=== PATIENT | female | born 1935 | race Caucasian/White ===

== ENCOUNTER 2017-04-16 14:29 | Inpatient (IN) | payer OTHER ==
[~2017-04-16] VITALS: Ht 160 cm; Wt 76.0 kg
[2017-04-16] MEDS ORDERED: HYDRALAZINE HCL50 MG PO (14:50)
[2017-04-16] MEDS ORDERED: CHILD ASPIRIN81 M1 PO (14:51)
[2017-04-16] MEDS ORDERED: NEURONTIN300 MG PO (14:52)
[2017-04-16] MEDS ORDERED: ULORIC40 MG PO (14:52)
[2017-04-16] MEDS ORDERED: TOPROL XL100 MG PO (14:53)
[2017-04-16] MEDS ORDERED: TOPROL XL50 MG PO (14:53)
[2017-04-16] MEDS ORDERED: NYSTATIN100000 UN1 PO (14:54)
[2017-04-16] MEDS ORDERED: LIPITOR40 MG PO (14:56)
[2017-04-16] MEDS ORDERED: ACIDOPHILUS1 EAC4 PO (14:56)
[2017-04-16] MEDS ORDERED: ARICEPT5 MG PO (14:58)
[2017-04-16] MEDS ORDERED: SYNTHROID75 MCG PO (15:01)
[2017-04-16] MEDS ORDERED: PROTONIX40 MG PO (15:02)
[2017-04-16] MEDS ORDERED: MILK OF MAGN PO (15:02)
[2017-04-16] MEDS ORDERED: BISAC-EVAC10 MG PR (15:03)
[2017-04-16] MEDS ORDERED: FLEET ENEMA-AD118 ML PR (15:03)
[2017-04-16] MEDS ORDERED: PROMETHAZINE HC25 M1 PO (15:04)
[2017-04-16 15:47] LABS: HEMATOCRIT 33.6 % (36.0-46.0); MCH 23.4 PG (29.0-34.0); MCHC 30.4 G/DL (30.0-36.0); MCV 77.1 FL (83-99); MEAN PLAT.VOLUME 10.1 uM^3 (9.5-12.4); PLATELET COUNT 307 K/uL (156-360); RBC DIS.WIDTH-CV 17.3 % (11.8-14.6); RBC DIS.WIDTH-SD 48.3 % (39-53); RED BLOOD COUNT 4.36 M/uL (3.80-5.20); WHITE BLOOD COUNT 8.5 K/uL (4.1-10.2)
[2017-04-16 15:57] LABS: CHLORIDE 115 mEq/L (99-109); INTER. NORMALIZED RATIO 1.1; PROTHROMBIN TIME 11.9 SEC (10.2-12.9); SODIUM 141 mEq/L (136-147)
[2017-04-16 15:59] LABS: GLUCOSE 170 mg/dL (70-99)
[2017-04-16 16:00] LABS: ANION GAP 11 MEQ/L (2-14)
[2017-04-16 16:02] LABS: GFR ESTIMATE (CALCULATED) 18 mL/min/
[2017-04-16 16:10] LABS: PTT 20.5 SEC (25-37)
[2017-04-16 16:11] LABS: TROP-I INTERPRETATION NEGATIVE; TROPONIN-I 0.01 ng/mL (0.0-0.30)
[2017-04-16 16:18] LABS: UREA NITROGEN (BUN) 44 mg/dL (9-23)
[2017-04-16 16:23] LABS: POTASSIUM 6.4 mEq/L (3.7-5.4)
[2017-04-16] MEDS ORDERED: TYLENOL REGULA325 MG PO (19:10)
[2017-04-16 19:11] LABS: CREATININE 2.5 mg/dL (0.6-1.3); POTASSIUM 5.7 mEq/L (3.7-5.4)
[2017-04-16 23:02] LABS: TROP-I INTERPRETATION NEGATIVE; TROPONIN-I < 0.01 ng/mL (0.0-0.30)
[2017-04-17] VITALS (7 sets, daily range): BP systolic 143–177; BP diastolic 63–73
[2017-04-17 03:09] LABS: POINT-OF-CARE METER ID UU14174225
[2017-04-17 08:28] LABS: POINT-OF-CARE METER ID UU14174225
[2017-04-17 08:42] LABS: HEMATOCRIT 30.4 % (36.0-46.0); MCH 22.9 PG (29.0-34.0); MCHC 29.9 G/DL (30.0-36.0); MCV 76.6 FL (83-99); MEAN PLAT.VOLUME 9.8 uM^3 (9.5-12.4); PLATELET COUNT 268 K/uL (156-360); RBC DIS.WIDTH-CV 17.3 % (11.8-14.6); RBC DIS.WIDTH-SD 48.2 % (39-53); RED BLOOD COUNT 3.97 M/uL (3.80-5.20)
[2017-04-17 09:09] LABS: TROP-I INTERPRETATION NEGATIVE; TROPONIN-I < 0.01 ng/mL (0.0-0.30)
[2017-04-17 09:30] LABS: ANION GAP 7 MEQ/L (2-14); CHLORIDE 114 MEQ/L (99-109); GFR ESTIMATE (CALCULATED) 18 mL/min/; IRON 35 MCG/DL (35-150); POTASSIUM 5.7 MEQ/L (3.7-5.4); SAMPLE HEMOLYSIS CHECK 0; SAMPLE ICTERIC CHECK 0; SAMPLE LIPEMIA CHECK 0; SODIUM 141 MEQ/L (136-147); UREA NITROGEN (BUN) 46 mg/dL (9-23)
[2017-04-17 09:31] LABS: GLUCOSE 105 mg/dL (70-99)
[2017-04-17 10:04] LABS: FERRITIN 29 NG/ML (10-291)
[2017-04-17 11:52] LABS: POINT-OF-CARE METER ID UU14174225
[2017-04-17 12:13] LABS: POINT-OF-CARE METER ID UU14174225
[2017-04-17 12:56] LABS: UR CREATININE CONCENTRATION 50.2 MG/DL
[2017-04-17 15:20] LABS: ANION GAP 7 MEQ/L (2-14); CHLORIDE 115 MEQ/L (99-109); GFR ESTIMATE (CALCULATED) 21 mL/min/; GLUCOSE 202 mg/dL (70-99); POTASSIUM 5.7 MEQ/L (3.7-5.4); SAMPLE HEMOLYSIS CHECK 0; SAMPLE ICTERIC CHECK 0; SAMPLE LIPEMIA CHECK 0; SODIUM 142 MEQ/L (136-147); UREA NITROGEN (BUN) 44 mg/dL (9-23)
[2017-04-17 15:26] LABS: POINT-OF-CARE METER ID UU14174225
[2017-04-17 19:43] LABS: ANION GAP 8 MEQ/L (2-14); CHLORIDE 114 MEQ/L (99-109); GFR ESTIMATE (CALCULATED) 20 mL/min/; GLUCOSE 134 mg/dL (70-99); POTASSIUM 5.2 MEQ/L (3.7-5.4); SAMPLE HEMOLYSIS CHECK 0; SAMPLE ICTERIC CHECK 0; SAMPLE LIPEMIA CHECK 0; SODIUM 143 MEQ/L (136-147); UREA NITROGEN (BUN) 45 mg/dL (9-23)
[2017-04-17 21:51] LABS: POINT-OF-CARE METER ID UU14174225
[2017-04-18 01:04] LABS: CHLORIDE 114 mEq/L (99-109); SODIUM 142 mEq/L (136-147)
[2017-04-18 01:06] LABS: GLUCOSE 146 mg/dL (70-99)
[2017-04-18 01:07] LABS: ANION GAP 7 MEQ/L (2-14)
[2017-04-18 01:10] LABS: GFR ESTIMATE (CALCULATED) 19 mL/min/; UREA NITROGEN (BUN) 47 mg/dL (9-23)
[2017-04-18 03:47] VITALS: BP 146/67
[2017-04-18 06:23] LABS: HEMATOCRIT 30.2 % (36.0-46.0); MCH 23.8 PG (29.0-34.0); MCHC 30.8 G/DL (30.0-36.0); MCV 77.2 FL (83-99); MEAN PLAT.VOLUME 10.2 uM^3 (9.5-12.4); PLATELET COUNT 280 K/uL (156-360); RBC DIS.WIDTH-CV 17.3 % (11.8-14.6); RBC DIS.WIDTH-SD 48.1 % (39-53); RED BLOOD COUNT 3.91 M/uL (3.80-5.20); WHITE BLOOD COUNT 6.8 K/uL (4.1-10.2)
[2017-04-18 06:47] LABS: C3 COMPLEMENT 150 MG/DL (58-170); C4 COMPLEMENT 47 MG/DL (10-40)
[2017-04-18 06:48] LABS: ANION GAP 9 MEQ/L (2-14); CHLORIDE 113 MEQ/L (99-109); GFR ESTIMATE (CALCULATED) 19 mL/min/; GLUCOSE 119 mg/dL (70-99); POTASSIUM 4.9 MEQ/L (3.7-5.4); SAMPLE HEMOLYSIS CHECK 0; SAMPLE ICTERIC CHECK 0; SAMPLE LIPEMIA CHECK 0; SODIUM 144 MEQ/L (136-147); UREA NITROGEN (BUN) 44 mg/dL (9-23)
[2017-04-18 07:22] VITALS: BP 167/84
[2017-04-18 07:38] LABS: POINT-OF-CARE METER ID UU14174225
[2017-04-18 08:06] LABS: INTACT PARATHYROID HORMONE 32 pg/mL (10-69)
[2017-04-18 08:13] LABS: Estimated Average Glucose 137 mg/dL (70-123); HEMOGLOBIN A1c (GLYCOHEMOGLOB) 6.4 % HGB (Below 5.7)
[2017-04-18 08:35] LABS: INTER. NORMALIZED RATIO 1.2; PROTHROMBIN TIME 13.1 SEC (10.2-12.9)
[2017-04-18 08:43] LABS: PTT 28.8 SEC (25-37)
[2017-04-18 10:51] LABS: TYPE OF FLUID PLEURAL
[2017-04-18 11:13] LABS: HBSG INDEX 0.15
[2017-04-18 11:14] LABS: AHBS INDEX 0.25; HEPATITIS B SURFACE ANTIBODY Nonreactive; HPCA INDEX 0.11
[2017-04-18 11:18] VITALS: BP 182/72
[2017-04-18 11:33] LABS: POINT-OF-CARE METER ID UU14174225
[2017-04-18 11:45] LABS: BODY FLUID LDH 49 IU/L; BODY FLUID PROTEIN < 3.0 G/DL
[2017-04-18 12:10] LABS: BODY FLUID EOSINOPHILS 0 % (0-25); BODY FLUID RBC'S < 1000 /MM^3 (0-100); BODY FLUID WBC'S 181 /MM^3 (0-500); MONONUCLEAR WBC'S 70 %; POLYNUCLEAR WBC'S 30 % (0-25)
[2017-04-18 13:06] VITALS: BP 166/74
[2017-04-18 15:07] VITALS: BP 144/66
[2017-04-18 15:32] LABS: IFE GEL NO. capi-50
[2017-04-18 16:37] LABS: POINT-OF-CARE METER ID UU14174225
[2017-04-18 19:46] VITALS: BP 168/75
[2017-04-19 00:24] VITALS: BP 137/64
[2017-04-19 07:25] LABS: ANION GAP 8 MEQ/L (2-14); CHLORIDE 115 MEQ/L (99-109); GFR ESTIMATE (CALCULATED) 24 mL/min/; GLUCOSE 121 mg/dL (70-99); POTASSIUM 4.6 MEQ/L (3.7-5.4); SAMPLE HEMOLYSIS CHECK 0; SAMPLE ICTERIC CHECK 0; SAMPLE LIPEMIA CHECK 0; SODIUM 145 MEQ/L (136-147); UREA NITROGEN (BUN) 42 mg/dL (9-23)
[2017-04-19 08:16] VITALS: BP 149/67
[2017-04-19 10:34] LABS: URIC ACID 3.9 mg/dL (3.1-9.2)
[2017-04-19 12:09] LABS: POINT-OF-CARE METER ID UU13113717
[2017-04-19] MEDS ORDERED: AMLODIPINE BESYL5 MG PO (12:39)
[2017-04-19] MEDS ORDERED: VITAMIN D2000 UNI1 PO (12:40)
[2017-04-19] MEDS ORDERED: NOVOLOG PE100 UNITS/ SC (12:42)
[2017-04-19 15:18] VITALS: BP 171/64
== END 2017-04-19 18:56 | DRG 189 ==
LOC: EME 14:29 → EDOF 21:18 → 5SOUTH 21:18 → ENRESERV 21:21 → ENRESERVTM 21:30 → ENRESERV 21:40 → 5SOUTH 23:47
PROVIDERS: Emergency Medicine; Internal Medicine; Radiology Diagnostic Radiology
DX: J96.01 Acute respiratory failure with hypoxia (principal); E87.2 Acidosis; E87.5 Hyperkalemia; I13.0 Hypertensive heart and chronic kidney disease with heart failure and stage 1 through stage 4 chronic kidney disease, or unspecified chronic kidney disease; I50.32 Chronic diastolic (congestive) heart failure; N17.9 Acute kidney failure, unspecified; T37.0X5A Adverse effect of sulfonamides, initial encounter; N18.4 Chronic kidney disease, stage 4 (severe); E11.22 Type 2 diabetes mellitus with diabetic chronic kidney disease; E11.21 Type 2 diabetes mellitus with diabetic nephropathy; E11.42 Type 2 diabetes mellitus with diabetic polyneuropathy; I27.2 Other secondary pulmonary hypertension; M25.461 Effusion, right knee; J98.11 Atelectasis; D63.1 Anemia in chronic kidney disease; G30.9 Alzheimer's disease, unspecified; F02.80 Dementia in other diseases classified elsewhere, unspecified severity, without behavioral disturbance, psychotic disturbance, mood disturbance, and anxiety; R29.6 Repeated falls; E55.9 Vitamin D deficiency, unspecified; E78.5 Hyperlipidemia, unspecified; E89.0 Postprocedural hypothyroidism; I08.0 Rheumatic disorders of both mitral and aortic valves; I73.9 Peripheral vascular disease, unspecified; K57.90 Diverticulosis of intestine, part unspecified, without perforation or abscess without bleeding; M10.9 Gout, unspecified; M19.90 Unspecified osteoarthritis, unspecified site; Z79.4 Long term (current) use of insulin; Z79.82 Long term (current) use of aspirin; Z86.12 Personal history of poliomyelitis; Z86.718 Personal history of other venous thrombosis and embolism; Z86.73 Personal history of transient ischemic attack (TIA), and cerebral infarction without residual deficits; Z87.11 Personal history of peptic ulcer disease; Z91.81 History of falling
CPT/HCPCS: 71010; 71020; 71250; 73560; 76770; 76942; 80047; 80048; 80048 91; 80069; 81003; 82306; 82436; 82570; 82728; 82945; 82948; 83036; 83540; 83615 91; 83880; 83970; 84132 91; 84133; 84156; 84157; 84300; 84466; 84484; 84550; 85027; 85379; 85610; 85730; 86160; 86334; 86335; 86706; 86803; 87070; 87075; 87116; 87205; 87206; 87340; 88108; 88305; 89051; 93005; 93306; 93970; 94640; 94640 76; 94760; 94799; 99202; 99281; 99285; C1753; J0610; J1644; J1756; J1815; J1940; J7030; J7042; J7050

== ENCOUNTER → 2017-05-09 | Outpatient (CLI) | payer OTHER ==
[~2017-05-09] MED LIST: ACIDOPHILUS1 EAC4 PO; AMLODIPINE BESYL5 MG PO; ARICEPT5 MG PO; BISAC-EVAC10 MG PR; CHILD ASPIRIN81 M1 PO; FLEET ENEMA-AD118 ML PR; HYDRALAZINE HCL50 MG PO; LIPITOR40 MG PO; MILK OF MAGN PO; NEURONTIN300 MG PO; NOVOLOG PE100 UNITS/ SC; NYSTATIN100000 UN1 PO; PROMETHAZINE HC25 M1 PO; PROTONIX40 MG PO; SYNTHROID75 MCG PO; TOPROL XL100 MG PO; TOPROL XL50 MG PO; TYLENOL REGULA325 MG PO; ULORIC40 MG PO; VITAMIN D2000 UNI1 PO
== END ==
LOC: RAD 13:23
DX: J90 Pleural effusion, not elsewhere classified (principal); E87.5 Hyperkalemia
CPT/HCPCS: 71250